=== PATIENT | male | born 1975 | race Caucasian/White ===

== ENCOUNTER 2018-06-30 12:30 | Emergency (ER) | payer SELFPAY ==
[2018-06-30 12:34] VITALS: BP 159/78; PULSE 127; RESP 16; TEMP 37.1; O2SAT 96
--- NOTE | 2018-06-30 12:44 | ED.GENADUL_ITS ---
Discharge Plan Disposition Patient Disposition: HOME Condition: Fair Discharge Details Chief Complaint: Laceration Clinical Impression: Finger laceration Primary Care Provider: NONE,NONE ED Provider: Birgit Alex Home Meds and New Rx's Prescriptions: No Action No Known Home Meds RF: 0 Discharge Instructions Instructions: Finger Laceration (ED) Additional Instructions: Keep wound clean, dry, covered. Keep current dressing on for the next 24 hours. After that time, you may cover with a Band-Aid. Please monitor for signs of infection including redness, warmth, drainage, increased pain, fever/ chills. If these arise please seek care urgently once again. Please return in 1 week for suture removal. He may wash and running water but do not soak or submerge this will increase her risk of infection. Tetanus Updated today. Discharge Data Discharge Date/Time-TO BE ENTERED AT DEPARTURE: 06/30/18 13:33 Medical Decision Making Patient presents today with chief complaint of laceration to fifth digit right hand. On exam, he is noted to have a curvilinear laceration is 8 mm in length. Wound is not actively bleeding. Flap is slightly displaced. No tenderness or bony involvement is noted. Sensation is intact this is range of motion Procedure note: Using standard sterile technique, a digital block was first performed 1% lidocaine plain. 5 cc was infiltrated. The sufficiently anesthetized the area. The wound was then copiously irrigated and explored to base in bloodless field. No foreign body or debris was noted. The wound was realigned and #4 simple interrupted sutures of 5-0 nylon was placed. Patient tolerated procedure well and a dry sterile bulky dressing was placed Patient tolerated proceudre well. Wound was dressed by nursing staff. ADvised that he keep currently dressing on for the next 24 hours. Discussed wound care in depth. Discussed signs and symptoms of infection and when to seek care urgently once again. Advised he return in one week for suture removal. All of his quesitons adn concerns were addressed, he is in agreement with this plan. HPI General Mode of arrival: ambulatory . Date/Time Provider Initiated Documentation: 06/30/18 12:42 . Limitations to Documentation: no limitations . Information obtained by: patient . HPI Narrative: Patient is a 42-year-old eqfyk-abvz-gchbicus male presenting today with chief complaint a laceration to the fifth digit of his right hand. He reports that prior to arrival he punched a piece of glass which subsequently broke slicing the middle interphalangeal joint on the dorsal aspect of hand. Denies any other sensation. Denies other injuries from the incident. Unknown tetanus status Related Data Home Medications Medication Instructions Recorded Confirmed Unknown [No Known Home Meds] 06/30/18 06/30/18 Allergies Allergy/AdvReac Type Severity Reaction Status Date / Time latex Allergy Mild Skin Rash Unverified 06/30/18 12:37 clindamycin AdvReac Intermediate vomiting Unverified 06/30/18 12:37 General Stated Complaint: Laceration RADHA: 3 Review of Systems Constitutional Denies chills and Denies fever(s) Musculoskeletal Reports as per HPI Integumentary/Breasts Reports as per HPI Neurologic Reports as per HPI FOR[facility]LY [facility] Social History Smoking/Tobacco Use Status: Current every day Exam Const General: cooperative, healthy appearing, comfortable, no acute distress, well developed and well groomed Nutritional Appearance: average body habitus and well nourished Orientation: alert and awake Resp Effort & Inspection: normal respiratory effort, able to speak in complete sentences and no respiratory distress Cardio Rate: regular rate Rhythm: regular rhythm Skin Trauma: laceration (patient has a curvilinear laceraton to the middle phalange of the 5th digit right hand. Acitvely bleeding slightly. Full ROM. Sensation intact. No ligamentous injury noted. ) Neuro General: alert and awake Cognition: normal cognition Speech: speech normal Gait: normal gait Sensory Exam: no sensory deficits noted Extrem General: abnormal to inspection (laceration as above, exam otherwise without acute abnoramlity) Psych Appearance: grossly normal and well kempt Mental Status: mental status grossly normal Speech and Movement: speech and movement normal Course Vital Signs Temperature 37.1 C 06/30/18 12:34 Pulse 127 H 06/30/18 12:34 Respiratory Rate 16 06/30/18 12:34 Blood Pressure 159/78 H 06/30/18 12:34 Pulse Oximetry 96 06/30/18 12:34 Temperature 37.1 C 06/30/18 12:34 Temperature Source Temporal Artery Scan 06/30/18 12:34 Pulse 127 H 06/30/18 12:34 Respiratory Rate 16 06/30/18 12:34 Respiratory Effort Non-Labored 06/30/18 12:36 Blood Pressure 159/78 H 06/30/18 12:34 Blood Pressure Position Sitting 06/30/18 12:34 Pulse Oximetry 96 06/30/18 12:34 Oxygen Delivery Method Room Air 06/30/18 12:34 Oxygen Flow Rate 0 06/30/18 12:34 Pain Level 0 06/30/18 12:34
== END 2018-06-30 13:33 | disposition home or self-care (01) ==
PROVIDERS: Emergency Provider Physician Assistant
DX: S61.216A Laceration without foreign body of right little finger without damage to nail, initial encounter (principal); W25.XXXA Contact with sharp glass, initial encounter
CPT/HCPCS: 12001; 90471

== ENCOUNTER 2020-05-09 00:45 | Outpatient (CLI) | payer MEDICAID, SELFPAY ==
--- NOTE | 2020-05-09 07:15 | DI.RAD_ITS ---
EXAM: XR CERVICAL SPINE COMP 4-5V CLINICAL HISTORY: Assess alignment, bones,RT HAND PARESTHESIA,RADICULOPATHY,M54.10,R20.2 TECHNIQUE: COMPARISON: No exams were available for comparison FINDINGS: Six views were obtained. There is mild cervical kyphosis. Prevertebral soft tissues appear intact. There are mild hypertrophic degenerative changes the facet joints and to a lesser degree the vertebr al endplates. There may be mild narrowing of the neural foramina at C4-5, C5-6, and C6-7 bilaterally . No other significant bony or soft tissue abnormality seen. IMPRESSION: Degenerative changes as described above, if there is clinical suspicion of neurologic impingement, ad ditional evaluation with cervical spine MRI may be considered.
--- NOTE | 2020-05-09 07:15 | DI.RAD_ITS ---
EXAM: XR LUMBAR SPINE COMPLETE CLINICAL HISTORY: Assess alignment, bones,DORSALGIA, M54,9,RADICULOPATHY,M54.10 TECHNIQUE: COMPARISON: No exams were available for comparison FINDINGS: Five views were obtained. There are bilateral total hip joint prostheses. There is mild wedging T11 through L1 vertebral bodies which appears old. This may be on a developmental basis or reflect old compression injuries. Mild prominence vertebral endplates mild facet arthropathy noted throughout th e lumbar region. No evidence of fracture. No spondylolysis or spondylolisthesis. IMPRESSION: No evidence of acute process.
== END 2020-05-09 01:05 ==
PROVIDERS: PCP Nurse Practitioner Adult Health; Visit Provider Nurse Practitioner Adult Health
DX: M54.10 Radiculopathy, site unspecified; M54.9 Dorsalgia, unspecified; Z96.641 Presence of right artificial hip joint; Z96.642 Presence of left artificial hip joint; M40.202 Unspecified kyphosis, cervical region; R20.2 Paresthesia of skin
CPT/HCPCS: 72050; 72110

== ENCOUNTER 2020-05-09 14:06 | Outpatient (CLI) | payer MEDICAID, SELFPAY ==
--- NOTE | 2020-05-09 14:00 | DI.RAD_ITS ---
EXAM: XR HIP LT COMPLETE AP PELVIS CLINICAL HISTORY: eval L hip and back pain, h/o SHAUNA TECHNIQUE: COMPARISON: CR RIGHT FEMUR from 10/23/2015 FINDINGS: Three views were obtained. There is a total hip joint replacement in position on the left.. Acetabu lar component remains well seated. There are cerclage wires in the proximal femoral shaft fixating a n apparently healed fracture. The femoral component of the prosthesis appears normally seated. On the right there is a total hip joint replacement in position. Plate and screw fixation of the pro ximal femur noted. There is moderate heterotopic bone formation in the soft tissues of both hip regions. IMPRESSION:
== END 2020-05-09 14:26 ==
PROVIDERS: PCP Nurse Practitioner Adult Health; Referring Provider Nurse Practitioner Adult Health; Visit Provider Student in an Organized Health Care Education/Training Program
DX: M25.552 Pain in left hip (principal); Z96.642 Presence of left artificial hip joint; Z96.641 Presence of right artificial hip joint
CPT/HCPCS: 73502

== ENCOUNTER 2020-05-16 02:23 | Outpatient (CLI) | payer MEDICAID, SELFPAY ==
[2020-05-16 10:23] LABS: ALT 16 U/L (16-63); AST 15 U/L (15-37); Albumin 3.8 g/dL (3.4-5.0); Alkaline Phosphatase 83 U/L (46-116); Anion Gap 9.1 mmol/L (3-11); BUN 18 mg/dL (7-18); Bilirubin, Total 0.4 mg/dL (0.2-1.0); CO2 25.9 mmol/L (21.0-32.0); CREATININE 0.66 mg/dL (0.70-1.30); Calculated LDL 76 mg/dL (<100); Chloride 105 mmol/L (98-107); Cholesterol 138 mg/dL (<200); Glucose 94 mg/dL (74-106); HDL Cholesterol 49 mg/dL (40-60); Potassium 5.1 mmol/L (3.5-5.1); Sodium 140 mmol/L (136-145); TSH (W/Ref FT4) 1.09 uIU/mL (0.36-3.74); Total Protein 6.8 g/dL (6.4-8.2); Triglyceride 67 mg/dL (<150)
== END 2020-05-16 02:43 ==
PROVIDERS: PCP Nurse Practitioner Adult Health; Visit Provider Nurse Practitioner Adult Health
DX: Z13.29 Encounter for screening for other suspected endocrine disorder (principal); Z13.1 Encounter for screening for diabetes mellitus; Z13.220 Encounter for screening for lipoid disorders
CPT/HCPCS: 36415; 80053; 80061; 84443

== ENCOUNTER 2020-05-18 01:41 | Outpatient (CLI) | payer MEDICAID, SELFPAY ==
--- NOTE | 2020-05-18 07:45 | DI.MRI_ITS ---
EXAM: MR LUMBAR SPINE WO CLINICAL HISTORY: ACUTE BACK PAIN WITH RADICULOPATHY,M54.10,M54.9,G89.29. TECHNIQUE: Multiplanar multisequence MRI of the Lumbar spine was performed. COMPARISON: CT RENAL COLIC WO CONTRAST from 07/17/2014 CR XR LUMBAR SPINE COMPLETE from 05/09/2020 FINDINGS: Bones: The last intervertebral disc space is designated the L5/S1 level for the numbering purpose of this examination. Old anterior wedging deformities of T11 through L1 are noted. There is normal ma rrow signal. No evidence of an acute fracture is identified. Alignment is satisfactory. The signal characteristics are unremarkable. Cord: The conus tip ends at the T12 level. It is of normal size and signal intensity. T12-L1: Mild diffuse disc bulge. Mild narrowing of the central spinal canal. No significant neural foraminal stenosis. L1-2: No disc herniations or bulges are present. No central spinal canal or neural foraminal stenosis . L2-3: Mild diffuse disc bulge. Mild degenerative changes of the facets. Mild central spinal canal n arrowing. No significant neural foraminal stenosis. L3-4: Mild diffuse disc bulge. Degenerative changes of the facets. Mild central spinal canal narrow ing.Mild left neural foraminal narrowing. No significant right neural foraminal narrowing. L4-5: Mild diffuse disc bulge. Degenerative changes of the facets. Mild narrowing of the central sp inal canal and neural foramen bilaterally. L5-S1: No disc herniations or bulges are present. No central spinal canal or neural foraminal stenosi s. Soft tissues: The visualized SI joints and sacrum are well maintained. The paraspinal soft tissues ar e unremarkable. IMPRESSION: Multilevel degenerative changes in the lumbar spine causing central spinal canal neural foraminal diego nosis as described above. DATA REPOSITORY:
== END 2020-05-18 02:01 ==
PROVIDERS: PCP Nurse Practitioner Adult Health; Visit Provider Student in an Organized Health Care Education/Training Program
DX: M47.26 Other spondylosis with radiculopathy, lumbar region (principal); M48.061 Spinal stenosis, lumbar region without neurogenic claudication; M54.9 Dorsalgia, unspecified; G89.29 Other chronic pain
CPT/HCPCS: 72148

== ENCOUNTER 2021-02-22 00:50 | Outpatient (CLI) | payer MEDICAID, SELFPAY ==
--- NOTE | 2021-02-22 07:45 | DI.MRI_ITS ---
Exam(s) MR CERVICAL SPINE WO EXAM: MR CERVICAL SPINE WO CLINICAL HISTORY: assess bones, alignment; suspect R side pathology,CHRONIC NECK PAIN,ABNL TECHNIQUE: Multiplanar multisequence MRI of the cervical spine was performed without intravenous con trast. COMPARISON: CR XR CERVICAL SPINE COMP 4-5V from 05/09/2020 FINDINGS: CERVICOMEDULLARY JUNCTION: Intact with no evidence of cerebellar tonsillar ectopia. No obvious abnor mality of the odontoid process. No evidence of Chiari 1 malformation. There is some reversal of the curvature of the cervical spinal canal which has its epicenter at C5-6 level. CERVICAL SPINAL CORD: There is no abnormal signal in the cervical spinal cord and no evidence of foca l cord atrophy nor focal cord swelling. OSSEOUS:There are no cervical fractures evident. No significant osseous lesions in the cervical vert ebrae. INDIVIDUAL LEVELS: C2-3: No disc herniation nor central canal stenosis. No foraminal stenosis. No facet arthropathy. C3-4: No disc herniation nor central canal stenosis.Mild left-sided facet arthropathy. Right facet j oints unremarkable. No foraminal stenosis. C4-5: No disc herniation nor central canal stenosis.No facet arthropathy. No foraminal stenosis C5-6: Mild disc space narrowing. Broad annular bulging which flattens the anterior thecal sac and co ntacts the cord. There is mild central spinal canal stenosis at this level. Very mild sys increased signal seen within the central cord at this level on sagittal T2 images but not substantiated on the axial images. There is mild bilateral foraminal stenosis at this level. No obvious facet arthropat hy. C6-7: Normal disc height. This level exhibits posterolateral left disc protrusion which extends post eriorly 2 millimeters and is approximately 9 cm wide and slightly indents the thecal sac and cord and is so seated with the small left-sided Luschka joint osteophyte at this level. There is mild forami nal stenosis. Mild central canal stenosis. No facet arthropathy. C7-T1: No disc herniation nor central canal stenosis. No facet arthropathy.No foraminal stenosis. IMPRESSION: 1. Main findings here are at C5-6 and C6-7 levels where there are disc findings as described above an d associated mild central spinal canal stenosis. On the sagittal T2 images there is subtle suggestio n of slightly increased signal within the cord at C5-6 level but this is not substantiated on the axi al images. There is no evidence of focal cord swelling nor focal cord atrophy and no evidence of syr inx. 2. No abnormal intraosseous findings. 3. DATA REPOSITORY:
== END 2021-02-22 01:10 ==
PROVIDERS: PCP Nurse Practitioner Adult Health; Visit Provider Nurse Practitioner Adult Health
DX: M54.2 Cervicalgia (principal); G89.29 Other chronic pain
CPT/HCPCS: 72141

== ENCOUNTER 2022-12-11 01:28 | Outpatient (CLI) | payer MEDICAID, SELFPAY ==
--- NOTE | 2022-12-11 07:15 | DI.MRI_ITS ---
Exam(s) MR CERVICAL SPINE WO EXAM: MR CERVICAL SPINE WO CLINICAL HISTORY: chronic neck pain, degenerative cervical disc,foraminal stenosis,m54.2, TECHNIQUE: Multiplanar multisequence MRI of the cervical spine was performed without intravenous con trast. COMPARISON: MR MR CERVICAL SPINE WO from 02/22/2021 FINDINGS: CERVICOMEDULLARY JUNCTION: Intact with no evidence of cerebellar tonsillar ectopia. No obvious abnor mality of the odontoid process. No evidence of Chiari 1 malformation. CERVICAL SPINAL CORD: There is no abnormal signal in the cervical spinal cord and no evidence of foca l cord atrophy nor focal cord swelling. OSSEOUS:There are no cervical fractures evident. No significant osseous lesions in the cervical vert ebrae. There is again noted reversal of the normal curvature which is unchanged from February 2021. INDIVIDUAL LEVELS: C2-3: No disc herniation nor central canal stenosis. No foraminal stenosis. No facet arthropathy. C3-4: Tiny focus of increased signal in the posterior annulus is unchanged and not associated with a disc herniation. No central spinal canal stenosis. No facet arthropathy evident.No significant fora pastor stenosis at this level. C4-5: Normal disc height and signal. No disc herniation. No central canal stenosis. No significant facet arthropathy. No significant foraminal stenosis. C5-6: Mild disc space narrowing again noted. Broad annular bulging again noted which flattens the an terior thecal sac and contacts the anterior aspect of the cervical cord. Mild central spinal canal s tenosis is unchanged. No significant facet arthropathy at this level. Mild bilateral foraminal steno sis C6-7: Preserved disc height. Broad annular bulging which flattens the anterior thecal sac resulting in mild central spinal canal stenosis. Bilateral Luschka joint osteophytes. On the left side there is osteophyte-disc complex again noted which results in some left-sided foraminal stenosis again sharon lar to previous. No prominent foraminal stenosis on the right side. C7-T1: Normal disc height. However, on the present study there is now a posterolateral left disc pro trusion at this level which extends posteriorly 2 millimeters and is approximately 9 millimeters wide .. This does not extend appreciably into the exiting left neural foramen. There does not appear to be significant foraminal stenosis on either side. No facet arthropathy. IMPRESSION: 1. Multilevel findings as described above. The previously described findings at C5-6 and C6-7 levels are unchanged from February 2021. 2. However, on today's study there is a new posterolateral left disc protrusion at C7-T1 level which indents the posterior left thecal sac, extending posteriorly 2 millimeters and approximately 9 millim eters wide. No significant foraminal stenosis. Mild central stenosis 3. Again noted is reversal of the normal curvature which was also evident on the prior MRI scan of 2020. DATA REPOSITORY:
--- NOTE | 2022-12-11 07:15 | DI.MRI_ITS ---
Exam(s) MR LUMBAR SPINE WO EXAM: MR LUMBAR SPINE WO CLINICAL HISTORY: chronic back pain,spinal stenosis,spondylosis,m54.40,m48.061,m47.816. TECHNIQUE: Multiplanar multisequence MRI of the Lumbar spine was performed. COMPARISON: MR MR LUMBAR SPINE WO from 05/18/2020 FINDINGS: Conus medullaris is at normal level. There is no evidence of conus mass nor subjacent clumping of in trathecal nerve roots to suggest arachnoiditis. The distal thecal sac appears unremarkable.There is no evidence of Tarlov intrasacral cysts nor other significant findings within the sacral canal Bones:There are no fractures nor ominous osseous lesions in the lumbar vertebral bodies and visualize d sacrum. There appear to be chronic sequelae probable Scheuermann's disease in the visualized lower thoracic spine, unchanged from the prior study. No evidence of bone edema to suggest recent fractur es. With respect to the individual levels... T11-T12: Annular bulging similar to previous T12-L1: Mild annular bulging similar to previous. No distinct disc herniation. No canal stenosis. No foraminal stenosis. Preserved disc height. L1-2: Normal disc height and signal. No disc herniation nor central canal stenosis.No foraminal steno sis L2-3: Normal disc height. No disc herniation. Mild central canal stenosis which is unchanged and rel ated to short AP dimensions of the pedicles. No foraminal stenosis. No significant facet arthropath y. L3-4: Normal disc height. No disc herniation. Mild central spinal canal stenosis due to short AP di mensions the pedicles. No foraminal stenosis.Mild facet joint degenerative changes. L4-5: Normal disc height and signal. Mild symmetrical annular bulging. Central canal dimensions are lower normal. No focal disc protrusion. No foraminal stenosis. Some facet arthropathy bilaterally . No listhesis. L5-S1: Normal disc height. No disc herniation. No canal stenosis. No foraminal stenosis. Mild fac et degenerative changes. Soft tissues: paraspinal soft tissues appear unremarkable. IMPRESSION: 1. Mild multilevel findings without significant change when compared to the prior MRI scan of May 2020. 2. There is mild multifocal central canal stenosis which is mostly due to developmental short AP dime nsions of the pedicles. This is most evident at L3-4 level and L4-5. There is no severe central spi nal canal stenosis. There is no from the efficacy foraminal stenosis. There are no focal disc herni ations. 3. The appearance of the visualized lower thoracic vertebral bodies is is unchanged from May 2020 and consistent with prior Scheuermann's disease. DATA REPOSITORY:
--- NOTE | 2022-12-11 07:15 | DI.MRI_ITS ---
Exam(s) MR THORACIC SPINE WO EXAM: MR THORACIC SPINE WO CLINICAL HISTORY: acute thoracic back pain,radicular pain,m54.6,m54.14 TECHNIQUE: Multiplanar multisequence MRI of the thoracic spine was performed without intravenous con trast. COMPARISON: MR MR CERVICAL SPINE WO from 12/11/2022 FINDINGS: OSSEOUS: There are no acute appearing thoracic vertebral fractures. Findings in mid lower thoracic ve rtebrae consistent with sequelae of chronic Scheuermann's disease. There are no ominous osseous lesi ons in the thoracic vertebrae. THORACIC SPINAL CORD: There is no abnormal signal in the cervical spinal cord and no evidence of foca l cord atrophy nor focal cord swelling. There is no evidence of syringomyelia nor significant spinal cord dysraphism. There is no evidence of mass at the conus medullaris. The position of the conus me dullaris is at normal level. SIGNIFICANT INDIVIDUAL LEVEL FINDINGS: There is a posterolateral disc herniation the C7-T1 level, as described on the cervical spine study. No other disc protrusions evident. This disc protrusion extends posteriorly millimeters and is appr oximately 1 cm wide. No other disc protrusions evident. Central canal dimensions within normal limits. No foraminal stenosis. PARASPINAL TISSUES: No significant masses nor fluid collections evident. IMPRESSION: 1. There is posterolateral left C7-T1 disc herniation. No other disc herniations in the thoracic spi nal column. 2. No acute fractures. Findings in the lower vertebral bodies of the thoracic spine are consistent w ith chronic sequelae of probable Scheuermann's disease. 3. No abnormal signal in the thoracic spinal cord. DATA REPOSITORY:
== END 2022-12-11 01:48 ==
PROVIDERS: PCP Nurse Practitioner Adult Health; Visit Provider Nurse Practitioner Adult Health
DX: M54.6 Pain in thoracic spine (principal); M54.14 Radiculopathy, thoracic region; M50.23 Other cervical disc displacement, cervicothoracic region; M48.061 Spinal stenosis, lumbar region without neurogenic claudication; M47.816 Spondylosis without myelopathy or radiculopathy, lumbar region; M54.12 Radiculopathy, cervical region; M50.322 Other cervical disc degeneration at C5-C6 level; M50.323 Other cervical disc degeneration at C6-C7 level; M48.02 Spinal stenosis, cervical region; M47.812 Spondylosis without myelopathy or radiculopathy, cervical region
CPT/HCPCS: 72141; 72146; 72148

== ENCOUNTER → 2023-12-18 00:31 | Outpatient (CLI) | payer MEDICAID, SELFPAY ==
--- NOTE | 2023-12-18 09:00 | DI.RAD_ITS ---
Exam(s) XR HIP PELVIS ADULT BL EXAM: XR HIP PELVIS ADULT BL CLINICAL HISTORY: Bilat hip pain, s/p SHAUNA bilaterally,worsening,m25.559. TECHNIQUE: 2D digital imaging was performed of the pelvis and bilateral hips. Four images were obta ined. AP pelvis and lateral views of both hips were obtained. COMPARISON: CR XR HIP LT COMPLETE AP PELVIS from 05/09/2020 FINDINGS: BONES: No acute fracture is present. No bony destructive lesion is seen. There are stable postsurgica l changes of bilateral total hip replacements. There is a sideplate and screws set seen in the right femur. JOINTS: No dislocation present. SOFT TISSUE: Normal. IMPRESSION: Stable appearance of the hips bilaterally. No acute abnormality. Unremarkable radiographs of the lvis DATA REPOSITORY: RADIATION DOSE DELIVERED:
== END ==
PROVIDERS: PCP Nurse Practitioner Adult Health; Visit Provider Preventive Medicine Occupational Medicine
DX: M25.551 Pain in right hip (principal); M25.552 Pain in left hip
CPT/HCPCS: 73521

== ENCOUNTER 2024-05-13 10:01 | Outpatient (CLI) | payer MEDICAID, SELFPAY ==
[2024-05-13 10:33] VITALS: BP 133/88; PULSE 65; RESP 20; TEMP 36.7; O2SAT 98
[2024-05-13 11:10] VITALS: PULSE 64; RESP 18; O2SAT 98
[2024-05-13 11:20] VITALS: PULSE 65; RESP 18; O2SAT 98
[2024-05-13 11:27] VITALS: BP 127/98; PULSE 62; PULSE 64; RESP 11; O2SAT 98
--- NOTE | 2024-05-13 11:27 | DI.RAD_ITS ---
Exam(s) XR PAIN CLINIC LUMBAR SP 2V EXAM: XR PAIN CLINIC LUMBAR SP 2V CLINICAL HISTORY: DX:Lumbar Spondylosis TECHNIQUE: 2D and realtime digital imaging was performed. Radiologist not present. CONTRAST MATERIAL: None. COMPARISON: No exams were available for comparison FINDINGS: Fluoroscopy was provided for pain management therapy. Please refer to procedure report or details. radiation Exposure Index: Ka,r=12.14 mGy IMPRESSION: As above. RADIATION DOSE DELIVERED:
[2024-05-13] MEDS: Bupivacaine 0.5% Pres-Free 10 ML VIAL IJ (11:34)
[2024-05-13] MEDS: Omnipaque 240 MG/ML 50 ML BTL IJ (11:34)
[2024-05-13] MEDS: Nerve Block Tray 1 EACH MC (11:35)
--- NOTE | 2024-05-18 08:31 | PDOC.PAIN_ITS ---
Date of service: 05/13/24 Time of Service: 11:11 Pain Managment Procedure Note Procedure Note Procedure Note: PROCEDURE NOTE Bilateral Lumbar Medial Branch Blocks Date of Service: May 13, 2024 Patient: Sebastián Teresa Provider: Raegan Samson DO, MPH Sebastián Duncan Teresa has been referred to the [facility] for lumbar medial branch blocks. Pre-operative diagnosis: Lumbar Spondylosis without Myelopathy Post-operative diagnosis: Same Pre-procedure pain: VAS= 10/10 COMMENTS: I previously evaluated her in the office. Dex was interviewed and the medical records were reviewed. There were no medical, pharmacologic, radiographic or other structural contraindications to attempting fluoroscopically guided local anesthetic lumbar medial branch blocks. Risks and potential side effects were discussed. I also discussed the potential benefit(s) of the procedure with Sebastián, and voiced concerns were addressed. After Sebastián was completely informed about the procedure, the printed consent form was signed. A standard time-out procedure was performed. Sebastián was placed in the prone position on the fluoroscopy table. Automated blood pressure cuff and pulse oximeter were applied. The skin entry points for approaching the anatomic target points of the segmental medial branches of bilateral L3,L4,L5 were identified with fluoroscopy and marked. The skin at the target site area was thoroughly prepared with Chlorhexadine. The skin was then draped. Next, a 25 gauge 3.5 spinal needle was placed under fluoroscopic guidance down on to the target point (the articular pillar) for each respective segmental medial branch. Position was confirmed in A/P and lateral views. Aspiration revealed no blood or clear fluid. Next, 0.25ml of omnipaque 240 was injected at each level. No contrast following a vascular or neural pattern was visualized under continuous fluoroscopy. Next, 0.25 ml of preservative-free 0.5% bupivicaine was injected at each level. There was no unusual discomfort expressed by Sebastián. The needles were withdrawn without difficulty. (49 mls of Omnipaque was wasted) Sebastián was observed and was without hemodynamic, neurologic, or allergic reactions.? Fluoroscopic images were digitally archived. Provacative testing using the Modified Rincon's facet loading test- Left side Right Side Directly before the block VAS (0-10) = 10/10 VAS (0-10) = 10/10 Five minutes after the block VAS (0-10) = 0/10 VAS (0-10) = 0/10 Percentage relief obtained with this diagnostic block 100% 100% Any improved physical functioning directly after the blocks? Able to move her back in all directions without pain Follow up plans and appointments were discussed with Sebastián. Sebastián was instructed to keep careful note of how the usual pain was modified by these injections. Specifically, to keep a pain diary for the next 4 hours using a numeric pain scale of 0-10 and report these results. Post procedure instruction was given as documented in the nursing documentation and having met discharge criteria, the patient was [facility]. Based on the medial branches blocked today, if they patient has adequate relief and we are able to proceed to radiofrequency ablation, the treatment should result in the denervation of the bilateral L4-L5 and L5-S1 facet joints. We would expect to denervate a total of 4 facets during the radiofrequency ablation. COMMENTS: No apparent complications. Post-procedure pain: VAS= 0/10 Sebastián will call back with 0-4 hour post-procedure pain scores. I personally performed the entire procedure. RAEGAN SAMSON DO, MPH ABPM&R-subspecialty board certification in Pain Medicine [facility]
== END 2024-05-13 10:02 | disposition home or self-care (01) ==
LOC: PC 10:01
PROVIDERS: PCP Nurse Practitioner Adult Health; Visit Provider Preventive Medicine Occupational Medicine
DX: M47.816 Spondylosis without myelopathy or radiculopathy, lumbar region (principal)
CPT/HCPCS: 64493; 64494; 72100; J0665; Q9967

== ENCOUNTER 2024-06-03 09:50 | Outpatient (CLI) | payer MEDICAID, SELFPAY ==
--- NOTE | 2024-06-03 06:00 | DI.RAD_ITS ---
Exam(s) XR PAIN CLINIC SACRIOILIAC 2V EXAM: XR PAIN CLINIC SACRIOILIAC 2V CLINICAL HISTORY: DX: Sacroiliac Joint Dysfunction TECHNIQUE: 2D and realtime digital imaging was performed. Radiologist not present. CONTRAST MATERIAL: None. COMPARISON: No exams were available for comparison FINDINGS: Fluoroscopy was provided for pain management therapy. Please refer to procedure report or details. Radiation Exposure Index: Ka,r=4.88 mGy IMPRESSION: As above. RADIATION DOSE DELIVERED:
[2024-06-03 10:11] VITALS: BP 117/77; PULSE 70; RESP 20; TEMP 36.8; O2SAT 99
[2024-06-03 10:32] VITALS: PULSE 67; RESP 11; O2SAT 99
[2024-06-03] MEDS: Nerve Block Tray 1 EACH MC (10:39)
[2024-06-03 10:40] VITALS: PULSE 66; RESP 16; O2SAT 96
[2024-06-03 10:41] VITALS: BP 121/93; PULSE 66
[2024-06-03] MEDS: Omnipaque 240 MG/ML 50 ML BTL IJ (10:42)
[2024-06-03] MEDS: methylPREDNISolone ACETATE 80 MG/ML VIAL IJ (10:42)
--- NOTE | 2024-06-03 10:55 | PDOC.PAIN_ITS ---
Date of service: 06/03/24 Time of Service: 10:56 Pain Managment Procedure Note Procedure Note Procedure Note: PROCEDURE NOTE LEFT INTRA-ARTICULAR SACROILIAC JOINT INJECTION Date of Service: June 03, 2024 Patient: Sebastián Teresa Provider: Joni Samson DO, MPH COMMENTS: I previously evaluated the patient in the office and their symptoms in relation to the sacroiliac joint pain have remained the same. Pre-operative diagnosis: Sacroiliac joint dysfunction Post-operative diagnosis: Same Pre-procedure pain: VAS= 7/10 Sebastián Teresa has been referred to [facility] for a Left intra-articular Sacroiliac joint injection. Sebastián was interviewed and the medical record reviewed. There were no medical, pharmacologic, radiographic or other structural contraindications to attempting a fluoroscopically-guided, contrast-enhanced, intra-articular Sacroiliac joint injection. The risks, benefits, and potential side effects of this procedure were reviewed with the patient. Questions and concerns were addressed. After it was clear that Sebatsián was fully informed about the procedure, the printed consent form was signed by the patient and myself. Sebastián was placed in the prone position on the fluoroscopy table and an automated blood pressure cuff, 3 lead EKG, and pulse oximeter were applied. The skin entry point for approaching the Left sacroiliac joint was identified under the most advantageous fluoroscopic view and marked. Following thorough Chlorhexadine preparation of the skin and draping with sterile surgical drapes, 2 mls of 1% lidocaine was infiltrated into the skin at the entry point and the surrounding subcutaneous tissues. Next, a 3.5 22G spinal needle was placed under fluoroscopic guidance into the Left sacroiliac joint. Intra-articular placement was confirmed by a clear arthrogram resulting from the injection of 0.25ml of Omnipaque-240. Next, 1 ml of Depo- Medrol 80 mg/ml was injected intra- articularly with an initial reproduction of a significant component of the usual pain. This was followed with 1 ml of 1% Lidocaine. The needle was then removed without difficulty. (49 ml of Omnipaque-240 was wasted). Sebastián's vital signs were stable throughout the procedure and were as recorded in nursing records. Follow up plans and appointments were discussed with Sebastián. Post procedure instructions were given as documented in nursing records. Having met discharge criteria, Sebastián was [facility] from the [facility]. COMMENTS: Post-procedure pain: VAS= 2/10. If the patient receives at least 50% improvement in pain and/or function for at least 3 months, this procedure can be repeated if needed. I personally performed this entire procedure. JONI SAMSON DO, MPH ABPMR-subspecialty board certification in Pain Medicine [facility]
== END 2024-06-03 09:51 | disposition home or self-care (01) ==
LOC: PC 09:50
PROVIDERS: PCP Nurse Practitioner Adult Health; Visit Provider Preventive Medicine Occupational Medicine
DX: M46.1 Sacroiliitis, not elsewhere classified (principal)
CPT/HCPCS: 27096; 72200; J1010; Q9967

== ENCOUNTER 2024-07-01 16:29 | Emergency (ER) | payer MEDICAID, SELFPAY ==
[2024-07-01] VITALS (13 sets, daily range): BP systolic 146; BP diastolic 86; PULSE 65–77; RESP 13–20; TEMP 36.5; O2SAT 96–99
--- NOTE | 2024-07-01 16:45 | DI.CT_ITS ---
Exam(s) CT HEAD CERVICAL SPINE WO EXAM: CT HEAD CERVICAL SPINE WO CLINICAL HISTORY: cervical pain post fall 8 ft, no neuro def. TECHNIQUE: Imaging Protocol: Axial computed tomography images with coronal and sagittal reformatted images were created and reviewed COMPARISON: No exams were available for comparison FINDINGS: BRAIN: There are no skull fractures nor fluid in the visualized paranasal sinuses. There is no evidence of intracranial hemorrhage, mass effect, or shift of midline structures. There are no extra-axial fluid collections. The ventricles are not enlarged or shifted and there is no blo od within the ventricular system nor within the basal cisterns. CERVICAL SPINE: There is no evidence of fracture nor listhesis. No significant prevertebral soft tissue swelling. C1 arch and odontoid process appear unremarkable. Mild evidence of degenerative disc disease at C5-6 and C6-7 levels. Minimal disc space narrowing and small bilateral Luschka joint osteophytes at both these levels. There are no significant facet join t degenerative changes. There is no significant facet joint malalignment. No significant osseous lesions evident. IMPRESSION: No acute intracranial findings on this noninfused CT scan of the brain. No evidence of cervical spine fracture, malalignment, nor acute compromise of the cervical spinal can al. Called by myself to ER 07/01/2024 at 5:37 p.m. RADIATION DOSE DELIVERED: 1,268.1mGy.cm Total DLP DATA REPOSITORY: All CT scans at this facility are submitted to the National Radiology Data Registry (NRDR) Dose Index Registry (DIR) with the [employer] (ACR). RADIATION OPTIMIZATION: All CT scans at this facility use at least one of these dose optimization te chniques: automated exposure control; mA and/or kV adjustment per patient size (includes targeted exa ms where dose is matched to clinical indication); or iterative reconstruction.
--- NOTE | 2024-07-01 16:45 | DI.CT_ITS ---
Exam(s) CT CHEST/ABD/PEL W EXAM: CT CHEST/ABD/PEL W CLINICAL HISTORY: fall 8 feet, landed on chest, left sided pain. TECHNIQUE: Imaging Protocol: Axial computed tomography images with coronal and sagittal reformatted images were created and reviewed CONTRAST MATERIAL: Intravenous: Omnipaque 350 Contrast volume:100 ml Oral: None COMPARISON: CT RENAL COLIC WO CONTRAST from 07/17/2014 FINDINGS: CHEST: LUNGS: No evidence of lung contusion, infiltrates, pleural effusions, nor pneumothorax.. MEDIASTINUM: No evidence of sternal fracture nor mediastinal hematoma. CARDIAC: Heart size is normal. There is no pericardial effusion.Diameter of the ascending thoracic a gabi is upper normal. No evidence of aortic dissection. OSSEOUS: No acute compression fractures of the thoracic vertebral bodies. Developmental anomalies of lower thoracic vertebrae noted. There are multiple bilateral rib deformities but no obvious acute r ib fractures.. ABDOMEN: There is no ascites. No evidence of mesenteric nor bowel wall hematoma. No prominent subcutaneous b ruising nor subcutaneous fluid collections. No radiopaque foreign bodies. LIVER: Intact. No lacerations. No lesions. No dilated intrahepatic ducts. GALLBLADDER/BILIARY: There is a 1 point 5 x 1.3 cm gallstone is in the mid gallbladder lumen. No gal lbladder wall edema nor pericholecystic fluid. CBD is not dilated. PANCREAS: No evidence of pancreatic mass, pancreatic calcifications, nor peripancreatic fluid collect ion. The pancreatic duct, however, is slightly prominent at the level the pancreatic head-neck measu ring 4 mm. There is no discernible mass. No peripancreatic fluid collections. SPLEEN: Intact. No lacerations. Normal size. No lesions. Splenic and portal veins are patent. ADRENALS: There are no significant adrenal masses. KIDNEYS: Intact. No lacerations norxz subcapsular hematomas. No renal calculi nor hydronephrosis. Benign cyst in the posterior cortex of the left kidney superior pole noted which measures 1 cm. Does not require further investigation.. No solid renal masses seen. No calculi. No hydronephrosis nor hydroureter. Urinary bladder is upper normal size. Difficult to assess because of beam hardening a rtifact from bilateral hip prostheses. ABDOMINAL AORTA: Abdominal aorta is not enlarged. LYMPH NODES: There is no retroperitoneal nor paraaortic adenopathy. ABDOMINAL WALL: No evidence of significant anterior abdominal wall nor inguinal hernia. GI: There is no evidence of bowel obstruction.No free air. No abscess. PELVIS: LYMPH NODES: There is no intrapelvic nor inguinal adenopathy. GI: No evidence of appendicitis.No evidence of sigmoid diverticulitis. URINARY BLADDER: Difficult to assess because of beam hardening artifact bilateral hip prostheses. No t distended. REPRODUCTIVE: Prostate difficult to assess because of beam hardening artifact from hip prostheses. H owever, no gross dilatation of the prostate evident. OSSEOUS: Chronic hip deformities in bilateral hip prostheses. No acute fractures evident in the pelv is and vertebral bodies. No listhesis. IMPRESSION: 1. No significant acute trauma sequelae in the chest, abdomen, and pelvis. 2. Bilateral hip prostheses. Chronic hip deformities. Vertebral body and chest wall deformities on developmental basis. Called by myself to ER provider 07/01/2024 6:10 p.m. RADIATION DOSE DELIVERED: 279.83mGy.cm Total DLP DATA REPOSITORY: All CT scans at this facility are submitted to the National Radiology Data Registry (NRDR) Dose Index Registry (DIR) with the [employer] (ACR). RADIATION OPTIMIZATION: All CT scans at this facility use at least one of these dose optimization te chniques: automated exposure control; mA and/or kV adjustment per patient size (includes targeted exa ms where dose is matched to clinical indication); or iterative reconstruction.
--- NOTE | 2024-07-01 17:00 | DI.RAD_ITS ---
Exam(s) XR SHOULDER LT COMPLETE 2+V EXAM: XR SHOULDER LT COMPLETE 2+V CLINICAL HISTORY: pain post fall. TECHNIQUE: 2D digital imaging was performed. COMPARISON: CR XR CERVICAL SPINE COMP 4-5V from 05/09/2020 FINDINGS: 3 views Deformity of the humeral head and osseous glenoid noted as well as the visualized proximal humeral di aphysis. Either developmental or related to prior fractures. Also deformity of the medial ipsilater al clavicle noted. There are no obvious acute fracture lines. No soft tissue calcifications. IMPRESSION: Post trauma deformities. No obvious acute fractures evident. DATA REPOSITORY: RADIATION DOSE DELIVERED:
--- NOTE | 2024-07-01 17:00 | DI.RAD_ITS ---
Exam(s) XR ELBOW LT LIMITED EXAM: XR ELBOW LT LIMITED CLINICAL HISTORY: left elbow pain. TECHNIQUE: 2D digital imaging was performed. COMPARISON: No exams were available for comparison FINDINGS: Two views-AP and lateral There are deformities in the elbow joint which are either developmental, posttraumatic, or combinatio n there of. No obvious acute fractures evident. The significant foreshortening of the forearm bones noted IMPRESSION: Developmental and post trauma of degenerative changes. No obvious acute fractures. DATA REPOSITORY: RADIATION DOSE DELIVERED:
[2024-07-01 17:05] LABS: Abs Immature Grans 0.05 10^3/uL (0.0-0.06); Absolute Basophil Count 0.09 10^3/uL (0.0-0.2); Absolute Eosinophil Count 0.12 10^3/uL (0.0-0.7); Absolute Lymphocyte Count 3.03 10^3/uL (1.2-3.4); Absolute Monocyte Count 0.65 10^3/uL (0.1-0.8); Absolute Neutrophil Count 6.67 10^3/uL (1.2-6.7); Basophils % 0.8 %; Eosinophils % 1.1 %; HCT 45.9 % (40.0-50.0); HGB 15.6 g/dL (13.5-17.5); Immature Grans % 0.5 %; Lymphocytes % 28.6 %; MCH 31.4 pg (27.0-33.0); MCV 92 fL (80-95); MPV 8.3 fL (8.0-11.0); Monocytes % 6.1 %; Neutrophils % 62.9 %; Platelet Count 383 10^3/uL (130-400); RBC 4.97 10^6/uL (4.36-5.78); RDW 12.6 % (11.8-14.1); RDW-SD 42.8 fL; WBC 10.61 10^3/uL (4.4-10.8)
[2024-07-01] MEDS: Normal Saline 500 ML IV (17:07)
[2024-07-01] MEDS: MORPHine 4 MG/ML SYR IVP (17:07)
[2024-07-01 17:21] LABS: ALT 15 U/L (16-63); AST 20 U/L (15-37); Albumin 3.9 g/dL (3.4-5.0); Alkaline Phosphatase 91 U/L (46-116); Anion Gap 9.2 mmol/L (3-11); BUN 9 mg/dL (7-18); Bilirubin, Total 0.55 mg/dL (0.2-1.0); CO2 24.8 mmol/L (21.0-32.0); CREATININE 0.7 mg/dL (0.70-1.30); Calcium 8.9 mg/dL (8.5-10.1); Chloride 99 mmol/L (98-107); Estimated GFR 115.08 (mL/min/1.73m2); Glucose 84 mg/dL (74-106); Potassium 4.1 mmol/L (3.5-5.1); Sodium 133 mmol/L (136-145); Total Protein 7.5 g/dL (6.4-8.2)
[2024-07-01] MEDS: Normal Saline - Diluent 50 ML VIAL IJ (17:27)
[2024-07-01] MEDS: Omnipaque 350 MG/ML 100 ML BTL IJ (17:52)
[2024-07-01] MEDS: oxyCODONE 5 mg/Acetaminophen 325 mg TAB 1 TAB PO (19:06)
[2024-07-01] MEDS: Ketorolac 15 MG/ML VIAL 7.5 MG IVP (19:06)
--- NOTE | 2024-07-03 08:10 | ED.GENADUL_ITS ---
Discharge Plan Disposition Patient Disposition: Home Discharge Details Clinical Impression: Injury of shoulder, Cervical strain, Chest wall contusion Primary Care Provider: Anayeli Gray ED Provider: Martha Moore Home Meds and New Rx's Prescriptions: New cyclobenzaprine 10 mg tablet 10 mg PO TID PRNQty: 10 0RF Continued acetaminophen 500 mg capsule 1,000 mg PO TID PRN (Reason: fever) Qty: 60 2RF Rx Instructions: For neck & hip pain (arthritis); ok to take with Celebrex. ibuprofen 200 mg tablet 200 mg PO Q6H PRN gabapentin 600 mg tablet 600 mg PO QHS Qty: 90 3RF triamcinolone acetonide 0.1 % ointment 1 applic topical DAILY Qty: 15 0RF Rx Instructions: use daily for 2 weeks to both elbows omeprazole 20 mg capsule,delayed release(DR/EC) 20 mg PO DAILY PRN (Reason: heartburn) Qty: 90 3RF Rx Instructions: heartburn Discharge Instructions Instructions: Muscle Strain ED, Cervical Sprain ED Additional Instructions: Keep wounds clean and dry Ibuprofen and Tylenol as needed for pain take oxycodone sparingly, this medication is addictive flexeril should not be taken within 8 hours of oxycodone continue to range shoulder so it does not become stiff take at least 12 complete inhalations and exhalations so you don't develop penumonia for chest wall injury recheck in one week with persistent pain Referrals: Anayeli Gray, PUBLISHER ASSISTANT [Primary Care Provider] - 3 days Discharge Data Discharge Date/Time-TO BE ENTERED AT DEPARTURE: 07/01/24 19:13 HPI General Date/Time Provider Initiated Documentation: 07/01/24 16:41 . HPI Narrative: 48-year-old male presents after fall approximately 8 feet from a porch. Patient reports landing on his left chest and shoulder. Denies loss of consciousness. Unsure as to whether or not he hit his head. Denies any abdominal pain nausea vomiting. Event occurred just prior to arrival. He was unable to lift himself, girlfriend came home and helped him up. Denies history of coagulopathy. Denies strength or sensation change. Denies any confusion. Related Data Home Medications ?Medication ?Instructions ?Recorded ?Confirmed acetaminophen 500 mg capsule 1,000 mg (2 x 500 mg) PO TID PRN 05/20/20 07/01/24 fever #60 caps omeprazole 20 mg capsule,delayed 20 mg PO DAILY PRN heartburn #90 09/04/23 07/01/24 release caps ibuprofen 200 mg tablet 200 mg PO Q6H PRN 09/05/23 07/01/24 gabapentin 600 mg tablet 600 mg PO QHS #90 tabs 05/27/24 07/01/24 triamcinolone acetonide 0.1 % 1 applic topical DAILY #15 grams 05/27/24 07/01/24 topical ointment cyclobenzaprine 10 mg tablet 10 mg PO TID PRN #10 tabs 07/01/24 Previous Rx's ?Medication ?Instructions ?Recorded acetaminophen 500 mg capsule 1,000 mg (2 x 500 mg) PO TID PRN 05/20/20 fever #60 caps omeprazole 20 mg capsule,delayed 20 mg PO DAILY PRN heartburn #90 09/04/23 release caps gabapentin 600 mg tablet 600 mg PO QHS #90 tabs 05/27/24 triamcinolone acetonide 0.1 % 1 applic topical DAILY #15 grams 05/27/24 topical ointment cyclobenzaprine 10 mg tablet 10 mg PO TID PRN #10 tabs 07/01/24 Allergies Allergy/AdvReac Type Severity Reaction Status Date / Time latex Allergy Mild Skin Rash Verified 07/01/24 16:39 clindamycin AdvReac Intermediate vomiting Verified 07/01/24 16:39 amitriptyline AdvReac Mild irritabilit Verified 07/01/24 16:39 y cyclobenzaprine AdvReac Mild Irritabilit Verified 07/01/24 16:39 y duloxetine AdvReac Agitation Verified 07/01/24 16:39 General Stated Complaint: Trauma RADHA: 2 Exam Narrative Exam Narrative: Alert and oriented 48-year-old male in acute distress from pain. No visible sign of head trauma, cervical spine tenderness around the fifth and 6 cervical spine predominantly paraspinal, neurovascularly intact all 4 extremities, pupils equal round reactive to light accommodation, palpable chest wall tenderness along the entire left anterior and posterior chest wall, no CVA tenderness, lungs clear to auscultation, no respiratory distress, cardiac rate rhythm regular, distal pulses intact, no palpable abdominal tenderness although when I press on the left upper quadrant the left chest pain is exacerbated and no visible sign of abdominal wall trauma, laceration superficial to left mid axillary region on chest wall, alert and oriented x 4, GCS 15, no sign of trauma to bilateral lower extremities, tenderness to left shoulder, limited range of motion, tenderness left elbow, limited range of motion, no obvious deformity Course Vital Signs Vital signs: Vital Signs Temperature 36.5 C 07/01/24 16:31 Pulse 77 07/01/24 16:31 Respiratory Rate 20 07/01/24 16:31 Blood Pressure 146/86 H 07/01/24 16:31 Pulse Oximetry 98 07/01/24 16:31 Temperature 36.5 C 07/01/24 19:13 Temperature Source Oral 07/01/24 16:31 Pulse 77 07/01/24 19:13 Pulse 65 07/01/24 18:00 Respiratory Rate 13 07/01/24 19:13 Respiratory Effort Normal, Non-Labored 07/01/24 17:01 Respiratory Depth Normal 07/01/24 17:01 Respiratory Pattern Normal 07/01/24 17:01 Blood Pressure 146/86 H 07/01/24 19:13 Pulse Oximetry 96 07/01/24 19:13 Pain Level 10 07/01/24 17:07 Lab/Test Results Lab/Test Results: Laboratory Tests Range/Units 07/01/24 16:57 WBC (4.4-10.8) 10^3/uL 10.61 RBC (4.36-5.78) 10^6/uL 4.97 Hgb (13.5-17.5) g/dL 15.6 Hct (40.0-50.0) % 45.9 MCV (80-95) fL 92 MCH (27.0-33.0) pg 31.4 MCHC (32.0-36.0) % 34.0 RDW (11.8-14.1) % 12.6 Plt Count (130-400) 10^3/uL 383 MPV (8.0-11.0) fL 8.3 Immature Gran % % 0.5 Neutrophils % % 62.9 Lymphocytes % % 28.6 Monocytes % % 6.1 Eosinophils % % 1.1 Basophils % % 0.8 Nucleated RBC % (0.0-0.3) % 0.0 Absolute Neutrophils (1.2-6.7) 10^3/uL 6.67 Absolute Lymphocytes (1.2-3.4) 10^3/uL 3.03 Absolute Monocytes (0.1-0.8) 10^3/uL 0.65 Absolute Eosinophils (0.0-0.7) 10^3/uL 0.12 Absolute Basophils (0.0-0.2) 10^3/uL 0.09 Sodium (136-145) mmol/L 133 L Potassium (3.5-5.1) mmol/L 4.1 Chloride (98-107) mmol/L 99 Carbon Dioxide (21.0-32.0) mmol/L 24.8 Anion Gap (3-11) mmol/L 9.2 BUN (7-18) mg/dL 9 Creatinine (0.70-1.30) mg/dL 0.7 Est GFR (CKD-EPI 2020) (mL/min/1.73m2) 115.08 Glucose (74-106) mg/dL 84 Calcium (8.5-10.1) mg/dL 8.9 Total Bilirubin (0.2-1.0) mg/dL 0.55 AST (15-37) U/L 20 ALT (16-63) U/L 15 L Alkaline Phosphatase (46-116) U/L 91 Total Protein (6.4-8.2) g/dL 7.5 Albumin (3.4-5.0) g/dL 3.9 Medical Decision Making 48-year-old male in no acute distress alert and oriented x 4 presenting after a fall approximately 8 feet from a porch. Given medical history of pseudo chondral plasia and widespread pain, I did order CTA head, cervical spine chest abdomen and pelvis. Patient does not have any obvious evidence of acute trauma per radiology interpretation my review, left shoulder and elbow also did not display acute fracture. Patient is feeling improvement after morphine, fluids and Toradol, he is requesting discharge home at this time. He will be given a sling with frozen shoulder return precautions. He has been fully alert and oriented. He will practice supportive pulmonary care to treat his chest wall tenderness to be sure he does not develop pneumonia, there is no obvious rib fracture. He is encouraged to return should he have new or worsening complaints and discharged home in stable condition with stable vitals. 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) Foraminal stenosis of cervical region (Acute) Kyphosis of cervical region (Acute) Degenerative cervical disc (Acute) Cervical radiculopathy (Acute) Chronic neck pain (Acute) Heartburn (Chronic) Omeprazole helps Lumbar disc herniation with radiculopathy (Acute) Chronic radicular lumbar pain (Chronic) [facility] 02/09/2021-->lumbosacral spondylosis without myelopathy Left hip pain (Acute) Right hand paresthesia (Acute) Chronic back pain (Acute) Nicotine use disorder (Acute) Pseudoachondroplasia (Chronic) Medical History History of spinal fracture History of femur fracture R; nicole in place Headache Surgical History History of bilateral hip replacements Family History Maternal Grandfather Diabetes Hypertension Maternal Grandmother Heart disease CHF Hypertension Mother Hypertension Maternal Grandfather Alcohol abuse Other Arthritis Social History Smoking/Tobacco Use Status: Current every day Tobacco Type: cigarettes Smoking risk assessment performed?: Yes Alcohol Intake: current Alcohol Intake frequency: holidays/special occasions only Drug use: Daily Substance use type: marijuana Household members: family Housing: house Do you need help understanding health information?: Rarely current occupation: Unemployed Do you think of yourself as: straight/heterosexual Current gender identity: male Do you feel safe at home: Yes Do you feel safe in your relationship?: Yes
== END 2024-07-01 19:13 | disposition home or self-care (01) ==
PROVIDERS: Emergency Provider Physician Assistant; PCP Nurse Practitioner Adult Health
DX: S20.212A Contusion of left front wall of thorax, initial encounter (principal); S16.1XXA Strain of muscle, fascia and tendon at neck level, initial encounter; M25.512 Pain in left shoulder; M25.522 Pain in left elbow; W10.8XXA Fall (on) (from) other stairs and steps, initial encounter
CPT/HCPCS: 36415; 74177; 80053; 96361; 96374; 96375; 99285; 70450; 71260; 72125; 73030; 73070; 85025; 99283; J1885; J2270; J3490

== ENCOUNTER 2024-07-16 12:12 | Outpatient (CLI) | payer MEDICAID, SELFPAY ==
--- NOTE | 2024-07-16 11:00 | DI.RAD_ITS ---
Exam(s) XR SHOULDER LT COMPLETE 2+V XR CLAVICLE LT EXAM: XR SHOULDER LT COMPLETE 2+V CLINICAL HISTORY: Second fall--r/o bony abnorm; compare to prior x-r M75.102 R29.6 M25.512. TECHNIQUE: 2D digital imaging was performed. Five views of the shoulder. Two views of the clavicle COMPARISON: CR XR CERVICAL SPINE COMP 4-5V from 05/09/2020 CR XR SHOULDER LT COMPLETE 2+V from 07/01/2024 CR XR CLAVICLE LT from 07/16/2024 FINDINGS: BONES: No acute fracture is present. No bony destructive lesion is seen. Chronic deformities of the humeral head and proximal humeral shaft as well as glenoid. Chronic appearing deformities of both pr oximal ends of the clavicles. Os acromiale. Mild thoracic scoliosis. JOINTS: No dislocation present. Chronic deformity at the glenohumeral joint. AC joint not widened. SOFT TISSUE: Normal. IMPRESSION: Chronic bony deformities. No acute abnormality. DATA REPOSITORY: RADIATION DOSE DELIVERED:
== END 2024-07-16 12:32 ==
LOC: DI 12:13
PROVIDERS: PCP Nurse Practitioner Adult Health; Visit Provider Nurse Practitioner Adult Health
DX: M21.212 Flexion deformity, left shoulder (principal)
CPT/HCPCS: 73000; 73030

== ENCOUNTER 2024-09-09 12:08 | Outpatient (CLI) | payer MEDICAID, SELFPAY ==
--- NOTE | 2024-09-09 06:00 | DI.RAD_ITS ---
Exam(s) XR PAIN CLINIC CERVICAL SP 2V EXAM: XR PAIN CLINIC CERVICAL SP 2V CLINICAL HISTORY: Dx: Cervical Radiculopathy. TECHNIQUE: Fluoroscopy was provided for the referring physician for guidance with performing pain cl inic injection procedure. COMPARISON: No exams were available for comparison FINDINGS: Please see procedure note for details. Fluoro time: 21.5 seconds RADIATION DOSE DELIVERED: Ka,r=2.2 mGy
[2024-09-09 12:12] VITALS: BP 114/85; PULSE 56; RESP 20; TEMP 36.7; O2SAT 98
[2024-09-09 12:26] VITALS: O2SAT 97
[2024-09-09 12:30] VITALS: BP 114/88; PULSE 69; PULSE 72; RESP 17; O2SAT 97
[2024-09-09 12:31] VITALS: BP 138/86; PULSE 68; PULSE 70; RESP 16; O2SAT 96
[2024-09-09 12:32] VITALS: PULSE 66; RESP 15; O2SAT 96
[2024-09-09 12:40] VITALS: PULSE 72; RESP 9; O2SAT 94
--- NOTE | 2024-09-09 12:42 | PDOC.PAIN_ITS ---
Date of service: 09/09/24 Time of Service: 12:42 Pain Managment Procedure Note Procedure Note Procedure Note: Procedure Note Cervical Interlaminar Epidural Steroid Injection Date of Service: September 09, 2024 Patient:Sebastián Bansal? Provider:? Raegan Mcdaniels DO, MPH Sebastián has been referred to the [facility] for cervical epidural steroid injection.? Pre-operative diagnosis: Cervical Radiculopathy ICD-10 M54.12 Post-operative diagnosis: Same Pre-procedure pain: VAS= 7/10 Comments: I previously evaluated him in the clinic. His symptoms are the same. Sebastián was interviewed and the medical record was reviewed.? There were no medical, pharmacologic, radiographic or other structural contraindications to attempting fluoroscopically guided cervical interlaminar epidural steroid injection.? Risks, potential side effects, indications, and potential benefits of the procedure were reviewed with Sebastián.? Questions and concerns were addressed.? After it was clear that the patient was fully informed about the procedure, the printed consent form was signed by the patient and myself.? Sebastián was placed in the prone position on the fluoroscopy table and automated blood pressure cuff as well as pulse oximeter was applied. A standard time-out procedure was performed. The skin entry point for entering the epidural space by a midline C7-T1 interlaminar approach was identified under fluoroscopy and marked.? The skin entry point was thoroughly cleaned with Chlorhexadine preparation and the skin was draped.? Next a mixture of 2 mls of 1% lidocaine was infiltrated into the area of the planned skin entry point and underlying subcutaneous tissues.? Next an 18 gauge Tuohy needle was placed under fluoroscopic guidance and with loss of resistance technique into the epidural space utilizing multiple AP and 55 degree contralateral fluoroscopic views.? Upon correct needle placement and loss of resistance, there were no paresthesia or return of blood or CSF through the needle. Next 1 mls of preservative-free Omnipaque 240 was injected with clear epidural spread in the A/P and oblique views. Next, a solution of 15 mg of preservative-free Dexamethasone was injected. This was followed with 1ml of preservative-free normal saline. No unusual discomfort was expressed by Sebastián. The needle was withdrawn without difficulty. (49 mls of Omnipaque and 5 mg of Dexamethasone was wasted) Sebastián was observed and was without hemodynamic, neurologic, or allergic reactions.? Fluoroscopic images were digitally archived. Sebastián's vital signs were stable throughout the procedure and were as recorded in the doc flowsheet by the nursing staff.? If given, dosages of intravenous drugs for anxiolysis and analgesia were documented in MAR. Follow up plans and appointments were discussed with Sebastián.? Post procedure instruction was given as documented in nursing documentation and having met mariia hollingsworth criteria, Sebastián was [facility] from the [facility]. A retrospective review of interlaminar cervical ESIs found that approximately two-thirds of patients with symptomatic cervical radiculopathy from disc herniation were able to avoid surgery for up to 1 year with treatment. Success rate was improved with earlier injection (< 100 days from diagnosis). Senait EL, Lidya V, Newton L, Adithya AN, Junior LATHAM. Cervical epidural steroid injections for symptomatic disc herniations. J Spinal Disord Tech. 2006 February;19(3):183-6. ? COMMENTS: No apparent complications. Post-procedure pain: VAS= 7/10. Sebastián to contact [facility] as needed. If at least 50% improvement in pain and/or function for at least 3 months is achieved, this procedure can be repeated. I personally completed the entire procedure. RAEGAN MCDANIELS DO, MPH ABPMR-subspecialty board certification in Pain Medicine [facility] [facility]
[2024-09-09] MEDS: Omnipaque 240 MG/ML 50 ML BTL IJ (12:45)
[2024-09-09] MEDS: Epidural Tray 1 EACH MC (12:45)
[2024-09-09] MEDS: Dexamethasone Sod. Phos./Pres-Free 10 MG/ML VIAL IJ (12:46)
== END 2024-09-09 12:09 | disposition home or self-care (01) ==
LOC: PC 12:08
PROVIDERS: PCP Nurse Practitioner Adult Health; Visit Provider Preventive Medicine Occupational Medicine
DX: M54.12 Radiculopathy, cervical region (principal)
CPT/HCPCS: 62321; 72040; J1100; Q9967

== ENCOUNTER 2024-10-13 01:02 | Outpatient (CLI) | payer MEDICAID, SELFPAY ==
--- NOTE | 2024-10-13 07:00 | DI.MRI_ITS ---
Exam(s) MR UPPER JOINT LT WO EXAM: MR UPPER JOINT LT WO CLINICAL HISTORY: High suspicion for rotator cuff tear,LT,M75.102. TECHNIQUE: Multiplanar multisequence MRI was performed. COMPARISON: CR XR SHOULDER LT COMPLETE 2+V from 07/16/2024 FINDINGS: BONES: There is chronic deformity of the proximal humerus and the glenoid. The left humeral head is club shaped and flatten at its articular surface. There is also flattening of the articular surface of the glenoid. There is hyperintense signal seen on the T2 weighted images in the proximal humerus but no fracture is identified. There is an os acromiale. JOINTS: There are mild degenerative changes seen at the acromioclavicular joint. Chronic deformity o f the acromioclavicular joint is noted. There is a small amount of fluid seen within the joint space . TENDONS: Supraspinatus: There is supraspinatus tendinosis but no evidence of a tendon tear. Infraspinatus: Unremarkable. Subscapularis: Unremarkable. Teres Minor: Unremarkable. Biceps and Plain Dealing: There is a circuitous route of the biceps anchor, but the biceps tendon as visuali zed is intact. MUSCLES: Unremarkable. GLENOID LABRUM: There is abnormal appearance of the posterior inferior labrum. This may be secondary to the chronic deformity but degeneration or tear cannot be excluded. SOFT TISSUES: Unremarkable. LIGAMENTS: Unremarkable. OTHER: Subacromial and subdeltoid bursae are unremarkable. IMPRESSION: 1. Chronic deformity involving the glenohumeral joint with flattening of the articular surfaces and a club like appearance of the humeral head. 2. Supraspinatus tendinosis but no evidence of a rotator cuff tear. 3. Degenerative changes seen at the acromioclavicular joint. 4. Abnormal appearance of the posterior inferior labrum which appears small and heterogeneous. This m ay be secondary to the chronic deformity but degeneration and/or tear cannot be excluded. DATA REPOSITORY:
== END 2024-10-13 01:22 ==
LOC: DI 01:03
PROVIDERS: PCP Nurse Practitioner Adult Health; Visit Provider Nurse Practitioner Adult Health
DX: M19.012 Primary osteoarthritis, left shoulder (principal)
CPT/HCPCS: 73221

== ENCOUNTER 2025-01-07 10:45 | Outpatient (CLI) | payer MEDICAID, SELFPAY ==
--- NOTE | 2025-01-07 06:00 | DI.RAD_ITS ---
Exam(s) XR PAIN CLINIC SACRIOILIAC 2V EXAM: XR PAIN CLINIC SACRIOILIAC 2V CLINICAL HISTORY: Dx: Sacroiliac Joint Dysfunction TECHNIQUE: 2D and realtime digital imaging was performed. CONTRAST MATERIAL: Refer to procedure report. COMPARISON: No exams were available for comparison FINDINGS: Fluoroscopy was provided for Dr. Samson during the performance of a left sacroiliac joint injection. Please refer to the procedure report for complete details. Ka,r=4.1 mGy IMPRESSION: RADIATION DOSE DELIVERED: 0.0 0.0 0
[2025-01-07 10:53] VITALS: BP 124/84; PULSE 83; RESP 20; TEMP 36.6; O2SAT 97
[2025-01-07 11:29] VITALS: BP 125/95; PULSE 78; RESP 15; O2SAT 98
[2025-01-07 11:31] VITALS: PULSE 79; PULSE 80; RESP 21; O2SAT 99
[2025-01-07] MEDS: methylPREDNISolone ACETATE 80 MG/ML VIAL IJ (11:42)
[2025-01-07] MEDS: Nerve Block Tray 1 EACH MC (11:42)
[2025-01-07] MEDS: Omnipaque 240 MG/ML 50 ML BTL IJ (11:42)
--- NOTE | 2025-01-07 11:53 | PDOC.PAIN_ITS ---
Date of service: 01/07/25 Time of Service: 11:55 Pain Managment Procedure Note Procedure Note Procedure Note: PROCEDURE NOTE LEFT INTRA-ARTICULAR SACROILIAC JOINT INJECTION Date of Service: January 07, 2025 Patient: Sebastián Teresa Provider: Joni Samson DO, MPH COMMENTS: I previously evaluated the patient in the office and their symptoms in relation to the sacroiliac joint pain have remained the same. He last had this procedure May 2024 and had about 6 months of >50% pain relief. His pain has mostly returned. Pre-operative diagnosis: Sacroiliac joint dysfunction ICD-10 M53.3 Post-operative diagnosis: Same Pre-procedure pain: VAS= 7/10 Sebastián Teresa has been referred to [facility] for a Left intra-articular Sacroiliac joint injection. Sebastián was interviewed and the medical record reviewed. There were no medical, pharmacologic, radiographic or other structural contraindications to attempting a fluoroscopically-guided, contrast-enhanced, intra-articular Sacroiliac joint injection. The risks, benefits, and potential side effects of this procedure were reviewed with the patient. Questions and concerns were addressed. After it was clear that Sebastián was fully informed about the procedure, the printed consent form was signed by the patient and myself. Sebastián was placed in the prone position on the fluoroscopy table and an automated blood pressure cuff, 3 lead EKG, and pulse oximeter were applied. The skin entry point for approaching the Left sacroiliac joint was identified under the most advantageous fluoroscopic view and marked. Following thorough Chlorhexadine preparation of the skin and draping with sterile surgical drapes, 2 mls of 1% lidocaine was infiltrated into the skin at the entry point and the surrounding subcutaneous tissues. Next, a 3.5 22G spinal needle was placed under fluoroscopic guidance into the Left sacroiliac joint. Intra-articular placement was confirmed by a clear arthrogram resulting from the injection of 0.25ml of Omnipaque-240. Next, 1 ml of Depo- Medrol 80 mg/ml was injected intra- articularly with an initial reproduction of a significant component of the usual pain. This was followed with 1 ml of 1% Lidocaine. The needle was then removed without difficulty. (49 ml of Omnipaque-240 was wasted). Sebastián's vital signs were stable throughout the procedure and were as recorded in nursing records. Follow up plans and appointments were discussed with Sebastián. Post procedure instructions were given as documented in nursing records. Having met discharge criteria, Sebastián was [facility] from the [facility]. COMMENTS: Post-procedure pain: VAS= 0/10. If the patient receives at least 50% improvement in pain and/or function for at least 3 months, this procedure can be repeated if needed. I personally performed this entire procedure. JONI SAMSON DO, MPH ABPMR-subspecialty board certification in Pain Medicine [facility] Coding Conscious Sedation used for procedure: No CPT Codes: SI Joint Inj; incl Fluoro - 33872 ([id number] ~G) left Additional Codes: Date of Service (03454) Date of service: 01/07/25
== END 2025-01-07 10:46 | disposition home or self-care (01) ==
LOC: PC 10:46
PROVIDERS: PCP Nurse Practitioner Adult Health; Visit Provider Preventive Medicine Occupational Medicine
DX: M53.3 Sacrococcygeal disorders, not elsewhere classified (principal)
CPT/HCPCS: 27096; 72200; J1010; Q9967

== ENCOUNTER 2025-05-01 18:02 | Emergency (ER) | payer MEDICAID, SELFPAY ==
[2025-05-01] VITALS (12 sets, daily range): BP systolic 145–147; BP diastolic 95; PULSE 61–89; RESP 18–20; TEMP 37.2; O2SAT 97–99
[2025-05-01] MEDS: ACETAMINOPHEN 500 MG/50 ML BAG 200 MG IVPB (19:00)
[2025-05-01] MEDS: HYDROmorphone 2 MG/ML SYR 0.5 MG IVP (19:28)
[2025-05-01] MEDS: Dexamethasone 4 MG/ML VIAL IVP (19:28)
[2025-05-01 19:29] LABS: Abs Immature Grans 0.02 10^3/uL (0.0-0.06); HCT 41.5 % (40.0-50.0); HGB 13.9 g/dL (13.5-17.5); Immature Grans % 0.2 %; MCH 31.2 pg (27.0-33.0); MCHC 33.5 % (32.0-36.0); MCV 93 fL (80-95); MPV 8.3 fL (8.0-11.0); Platelet Count 404 10^3/uL (130-400); RBC 4.45 10^6/uL (4.36-5.78); RDW 12.7 % (11.8-14.1); RDW-SD 43.9 fL; WBC 9.14 10^3/uL (4.4-10.8)
[2025-05-01] MEDS: Ketorolac 15 MG/ML VIAL 7.5 MG IVP (19:29)
[2025-05-01] MEDS: Normal Saline 500 ML IV (19:29)
[2025-05-01 19:30] LABS: ESR 11 mm/hr (0-15)
[2025-05-01 19:50] LABS: ALT 14 U/L (16-63); AST 16 U/L (15-37); Albumin 3.5 g/dL (3.4-5.0); Alkaline Phosphatase 80 U/L (46-116); Anion Gap 10.2 mmol/L (3-11); BUN 6 mg/dL (7-18); Bilirubin, Total 0.6 mg/dL (0.2-1.0); CO2 25.8 mmol/L (21.0-32.0); Calcium 8.3 mg/dL (8.5-10.1); Chloride 103 mmol/L (98-107); Estimated GFR 126.60 (mL/min/1.73m2); Glucose 94 mg/dL (74-106); Potassium 4.0 mmol/L (3.5-5.1); Sodium 139 mmol/L (136-145); Total Protein 6.6 g/dL (6.4-8.2)
[2025-05-01 19:53] LABS: C-Reactive Protein < 0.50 mg/dL (<or=0.5)
--- NOTE | 2025-05-01 20:11 | ED.GENADUL_ITS ---
Discharge Plan Disposition Patient Disposition: Home Condition: Stable Discharge Details Clinical Impression: Cervical radiculopathy Primary Care Provider: Anayeli Gray ED Provider: Martha Moore Home Meds and New Rx's Prescriptions: New gabapentin [Neurontin] 300 mg capsule 300 mg PO BID Qty: 28 0RF dexamethasone 4 mg tablet 4 mg PO DAILY Qty: 4 0RF Oxycodone, 4 Tabs/Btl [Roxicodone, 4 Tabs/Btl] 5 mg PO DISPENSE 2 Days 0RF Continued acetaminophen 500 mg capsule 1,000 mg PO TID PRN (Reason: fever) Qty: 60 2RF Rx Instructions: For neck & hip pain (arthritis); ok to take with Celebrex. gabapentin 600 mg tablet 600 mg PO QHS Qty: 90 3RF triamcinolone acetonide 0.1 % ointment 1 applic topical DAILY Qty: 15 0RF Rx Instructions: use daily for 2 weeks to both elbows omeprazole 20 mg capsule,delayed release(DR/EC) 20 mg PO DAILY PRN (Reason: heartburn) Qty: 90 3RF Rx Instructions: heartburn Discontinued diazepam [Valium] 5 mg tablet 2.5 - 5 mg PO QHS PRN (Reason: muscle relaxer) Qty: 20 0RF Rx Instructions: Muscle relaxer Discharge Instructions Instructions: Radiculopathy (DC) Additional Instructions: Please follow-up with your PCP, you would likely need a referral to neurosurgery as I suspect your disc herniation in your cervical spine is causing your radicular symptoms Take the steroids starting tomorrow you received a dose tonight in the emergency department You may take the oxycodone sparingly, this can be addictive and can cause constipation, do not drive for 8 hours after taking this medicine Make sure you take Tylenol 650 every 6 hours for pain control Increase your Neurontin, take 300 mg of Neurontin every 8 hours during the day and take your 600 mg at night before bedtime Please return should develop strength or sensation changes, or with any new or worsening complaints Referrals: Anayeli Gray, [employer] [Primary Care Provider, Medicine] HPI General Date/Time Provider Initiated Documentation: 05/01/25 18:07 . 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 Denies fever, chills, chest pain, shortness of breath, or trauma. Last injection a year ago. Takes gabapentin 600 mg at night for restless leg syndrome. Related Data Home Medications ?Medication ?Instructions ?Recorded ?Confirmed acetaminophen 500 mg capsule 1,000 mg (2 x 500 mg) PO TID PRN 05/20/20 05/01/25 fever #60 caps omeprazole 20 mg capsule,delayed 20 mg PO DAILY PRN he artburn #90 09/04/23 05/01/25 release caps gabapentin 600 mg tablet 600 mg PO QHS #90 tabs 05/2705/01/25 triamcinolone acetonide 0.1 % 1 applic topical DAILY # 15 grams 05/27/24 05/01/25 topical ointment dexamethasone 4 mg tablet 4 mg PO DAILY #4 tabs gabapentin 300 mg capsule 300 mg PO BID #28 caps 05/01 (Neurontin) oxyCODONE, 4 tabs/btl [Roxicodone, 5 mg PO DISPENSE 2 days 05/01/25 4 tabs/btl] Previous Rx's ?Medication ?Instructions ?Recorded acetaminophen 500 mg capsule 1,000 mg (2 x 500 mg) PO TID PRN 05/20/20 fever #60 caps omeprazole 20 mg capsule,delayed 20 mg PO DAILY PRN he artburn #90 09/04/23 release caps gabapentin 600 mg tablet 600 mg PO QHS #90 tabs 05/27 triamcinolone acetonide 0.1 % 1 applic topical DAILY # 15 grams 05/27/24 topical ointment dexamethasone 4 mg tablet 4 mg PO DAILY #4 tabs gabapentin 300 mg capsule 300 mg PO BID #28 caps 05/01 (Neurontin) oxyCODONE, 4 tabs/btl [Roxicodone, 5 mg PO DISPENSE 2 days 05/01/25 4 tabs/btl] Allergies Allergy/AdvReac Type Severity Reaction Status Date / Time latex Allergy Mild Skin Rash Verified 05/01/25 18:10 clindamycin AdvReac Intermediate vomiting Verified 05/01/25 18:10 amitriptyline AdvReac Mild irritabilit Verified 05/01/25 18:10 y cyclobenzaprine AdvReac Mild Irritabilit Verified 05/01/25 18:10 y duloxetine AdvReac Agitation Verified 05/01/25 18:10 General Stated Complaint: GenMedical RADHA: 3 Exam Narrative Exam Narrative: General Appearance: Alert and oriented, Tremulous. Vital signs: Within normal limits. HEENT: Within normal limits. Respiratory: Within normal limits. Cardiovascular: Distal pulses intact. Back, Musculoskeletal: Tenderness over C7 region consistent with disk herniation on October 2024 MRI. Extremities: Preserved strength in upper and lower extremities. Skin: Warm and dry, no rash. Neurological: Neurovascularly intact, DTRs intact. Other observations: None. Course Vital Signs Vital signs: Vital Signs Temperature 37.2 C 05/01/25 18:04 Pulse 89 05/01/25 18:04 Respiratory Rate 20 05/01/25 18:04 Blood Pressure 147/95 H 05/01/25 18:04 Pulse Oximetry 97 05/01/25 18:04 Temperature 37.2 C 05/01/25 18:15 Temperature Source Tympanic 05/01/25 18:15 Pulse 89 05/01/25 18:15 Respiratory Rate 18 05/01/25 19:15 Respiratory Effort Normal 05/01/25 19:15 Respiratory Depth Normal 05/01/25 19:15 Respiratory Pattern Normal 05/01/25 19:15 Blood Pressure 147/95 H 05/01/25 18:15 Blood Pressure Position Sitting 05/01/25 18:15 Pulse Oximetry 97 05/01/25 18:15 Oxygen Delivery Method Room Air 05/01/25 18:15 Oxygen Flow Rate 0 05/01/25 18:15 Pain Level 8 05/01/25 19:29 Lab/Test Results Lab/Test Results: Laboratory Tests Range/Units 05/01/25 05/01/25 18:45 19:20 WBC Cancelled 9.14 RBC Cancelled 4.45 Hgb Cancelled 13.9 Hct Cancelled 41.5 MCV Cancelled 93 MCH Cancelled 31.2 MCHC Cancelled 33.5 RDW Cancelled 12.7 Plt Count Cancelled 404 H MPV Cancelled 8.3 Immature Gran % Cancelled 0.2 Neutrophils % Cancelled 58.4 Band Neutrophils % Cancelled Lymphocytes % Cancelled 34.5 Atypical Lymphs % Cancelled Monocytes % Cancelled 4.7 Eosinophils % Cancelled 1.5 Basophils % Cancelled 0.7 Metamyelocytes % Cancelled Myelocytes % Cancelled Promyelocytes % Cancelled Other Cells % Cancelled Nucleated RBC % Cancelled 0.0 Absolute Neutrophils Cancelled 5.34 Absolute Lymphocytes Cancelled 3.15 Absolute Monocytes Cancelled 0.43 Absolute Eosinophils Cancelled 0.14 Absolute Basophils Cancelled 0.06 RBC Morphology Cancelled Polychromasia Cancelled Hypochromasia Cancelled Poikilocytosis Cancelled Basophilic Stippling Cancelled Anisocytosis Cancelled Microcytosis Cancelled Macrocytosis Cancelled Spherocytes Cancelled Tear Drop Cells Cancelled Ovalocytes Cancelled Stomatocytes Cancelled [place] Bodies Cancelled [place] Cells/Echinocytes Cancelled Acanthocytes (Spur) Cancelled Schistocytes Cancelled ESR Cancelled 11 Sodium Cancelled 139 Potassium Cancelled 4.0 Chloride Cancelled 103 Carbon Dioxide Cancelled 25.8 Anion Gap Cancelled 10.2 BUN Cancelled 6 L Creatinine Cancelled 0.5 L Est GFR (CKD-EPI 2020) Cancelled 126.60 Glucose Cancelled 94 Calcium Cancelled 8.3 L Total Bilirubin Cancelled 0.6 AST Cancelled 16 ALT Cancelled 14 L Alkaline Phosphatase Cancelled 80 C-Reactive Protein Cancelled < 0.50 Total Protein Cancelled 6.6 Albumin Cancelled 3.5 Medical Decision Making MRI from October 2024 shows disk herniation at C7. 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 Denies fever, chills, chest pain, shortness of breath, trauma. Differential Diagnosis: - Cervical disc herniation: Worsening neck pain, radiation into arms, increased paresthesias, tenderness over C7 region, MRI confirms disc herniation. Pain management with Dilaudid, Toradol, Tylenol, Decadron. Likely discharge home with increased gabapentin dosing, close outpatient follow-up. ED Course: - Dilaudid, Toradol, Tylenol, Decadron administered. Patient feeling marked improvement in symptoms. CBC does CMP and CRP sed rate do not show acute abnormality - No clinical findings consistent with cauda equina syndrome Final Assessment: Pain managed with Dilaudid, Toradol, Tylenol, Decadron. Likely discharge home with increased gabapentin dosing, close outpatient follow-up. Clinical Impression: - Cervical disc herniation Disposition: - Discharge: Home, pain management, increased gabapentin dosing, close outpatient follow-up - Follow-Up: Close outpatient follow-up PFSH All Active Problems (Updated 05/01/25 @ 20:12 by KANWAL Nelson) Cervical radiculopathy (Acute) Arthritis of left glenohumeral joint (Acute) Closed fracture of left proximal humerus (Acute) Cervical radiculopathy (Acute) Sacroiliac joint dysfunction of left side (Acute) Dysfunction of right eustachian tube (Acute) Otalgia of right ear (Acute) Lumbosacral spondylosis without myelopathy (Acute) Hip pain (Acute) Facet arthropathy, lumbar (Acute) Degenerative joint disease of cervical and lumbar spine (Acute) Foraminal stenosis of cervical region (Acute) Kyphosis of cervical region (Acute) Degenerative cervical disc (Acute) Cervical radiculopathy (Acute) Chronic neck pain (Acute) Heartburn (Chronic) Omeprazole helps Lumbar disc herniation with radiculopathy (Acute) Chronic radicular lumbar pain (Chronic) [facility] 02/09/2021-->lumbosacral spondylosis without myelopathy Left hip pain (Acute) Right hand paresthesia (Acute) Chronic back pain (Acute) Nicotine use disorder (Acute) Pseudoachondroplasia (Chronic) Medical History History of spinal fracture History of femur fracture R; nicole in place Headache Surgical History History of bilateral hip replacements Family History Maternal Grandfather Diabetes Hypertension Maternal Grandmother Heart disease CHF Hypertension Mother Hypertension Maternal Grandfather Alcohol abuse Other Arthritis Social History Smoking/Tobacco Use Status: Current every day Tobacco Type: cigarettes Smoking risk assessment performed?: Yes Alcohol Intake: current Alcohol Intake frequency: holidays/special occasions only Drug use: Daily Substance use type: marijuana Household members: family Housing: house Do you need help understanding health information?: Rarely current occupation: Unemployed Do you think of yourself as: straight/heterosexual Current gender identity: male Do you feel safe at home: Yes Do you feel safe in your relationship?: Yes
== END 2025-05-01 20:46 | disposition home or self-care (01) ==
PROVIDERS: Emergency Provider Physician Assistant; PCP Nurse Practitioner Adult Health
DX: M50.123 Cervical disc disorder at C6-C7 level with radiculopathy (principal); R20.2 Paresthesia of skin; F17.210 Nicotine dependence, cigarettes, uncomplicated
CPT/HCPCS: 80053; 85652; 96365; 96366; 96375; 99284; 85025; 86140; J0131; J1100; J1171; J1885

== ENCOUNTER 2025-05-10 19:41 | Outpatient (REF) | payer MEDICAID, SELFPAY ==
[2025-05-12 09:34] LABS: Lyme Ab w Rflx to Lyme Confirm Negative (Negative)
[2025-05-14 14:09] LABS: B. miyamotoi PCR Negative (Negative); Babesia divergens/MO-1 Negative (Negative); Ehrlichia muris eauclairensis Negative (Negative)
== END 2025-05-10 19:42 | disposition home or self-care (01) ==
LOC: LBN 19:41
PROVIDERS: PCP Nurse Practitioner Adult Health; Visit Provider Nurse Practitioner Adult Health
DX: W57.XXXA Bitten or stung by nonvenomous insect and other nonvenomous arthropods, initial encounter (principal); T14.90XA Injury, unspecified, initial encounter
CPT/HCPCS: 87798; 86618

== ENCOUNTER 2025-06-03 02:56 | Outpatient (CLI) | payer MEDICAID, SELFPAY ==
--- NOTE | 2025-06-03 06:58 | DI.MRI_ITS ---
Exam(s) MR CERVICAL SPINE WO EXAM: MR CERVICAL SPINE WO CLINICAL HISTORY: severe pain,CERVICAL RADICULOPATHY,M54.12 TECHNIQUE: Multiplanar multisequence MRI of the cervical spine was performed without intravenous contrast. COMPARISON: CR XR CERVICAL SPINE COMP 4-5V from 05/09/2020 MR MR CERVICAL SPINE WO from 02/22/2021 MR MR CERVICAL SPINE WO from 12/11/[address] HEAD CERVICAL SPINE WO from 07/01/2024 FINDINGS: BONES: Vertebral body heights are maintained. Intervertebral disc spaces are normal. There is mild reversal of the normal cervical lordosis centered at C6- C7. Bone marrow signal intensity is within normal limits. CERVICAL CORD: Craniovertebral junction is unremarkable. There is a new small focus of hyperintense signal seen in the posterior and left aspect of the spinal cord (series 5001, image 8 and series 8001, image 4). SOFT TISSUES: Unremarkable. C2-3: No disc herniation or bulge is identified. No significant central spinal canal or neural foraminal stenosis. C3-4: No disc herniation or bulge is identified. No significant central spinal canal or neural foraminal stenosis C4-5: No disc herniation or bulge is identified. No significant central spinal canal or neural foraminal stenosis C5-6: There is prominence of the osteophyte disc complex. There is mild narrowing of the central spinal canal. Uncovertebral joint arthropathy is present causing mild bilateral neural foraminal stenosis. No significant central spinal canal or neural foraminal stenosis C6-7: There is prominence of the osteophyte disc complex. There are degenerative changes seen at the uncovertebral joints bilaterally, left greater than right. There is resultant mild narrowing of the central spinal canal. There is also bilateral neural foraminal stenosis which is moderate on the left and mild on the right. C7-T1: There is a small left paracentral disc protrusion. There is no significant central spinal canal stenosis. There is no significant neural foraminal stenosis present. IMPRESSION: 1. New small hyperintense focus of signal in the posterior left aspect of the spinal cord. Differential considerations include infectious or an inflammatory process, injury. Neoplastic process cannot be entirely excluded. Postcontrast MRI of the cervical spine is recommended for further characterization. 2. Multilevel degenerative changes in the cervical spine resulting in central spinal canal and neural foraminal stenosis as described above. Unexpected findings DATA REPOSITORY:
== END 2025-06-03 03:16 ==
LOC: DI 02:57
PROVIDERS: PCP Nurse Practitioner Adult Health; Visit Provider Family Medicine
DX: M50.11 Cervical disc disorder with radiculopathy, high cervical region
CPT/HCPCS: 72141

== ENCOUNTER 2025-06-23 02:08 | Outpatient (CLI) | payer MEDICAID, SELFPAY ==
--- NOTE | 2025-06-23 06:00 | DI.MRI_ITS ---
Exam(s) MR CERVICAL SPINE W EXAM: MR CERVICAL SPINE W CLINICAL HISTORY: CHRONIC NECK PAIN,CERVICAL KYPHOSIS,RADICULOPATHY,FORAMINAL STENOSIS, TECHNIQUE: Multiplanar multisequence MRI of the cervical spine was performed. CONTRAST MATERIAL: IV Contrast: 11 ML of Dotarem contrast administered. COMPARISON: MR MR CERVICAL SPINE WO from 06/03/2025 FINDINGS: BONES: Vertebral body heights are maintained. Intervertebral disc spaces are normal. There is again seen mild reversal of the normal cervical lordosis. Bone marrow signal intensity is within normal limits. CERVICAL CORD: Craniovertebral junction is unremarkable. There is a stable focus of hyperintensity on the T2 weighted images in the spinal cord posterior to the C6 vertebra. There is no enhancement of this area following contrast administration. The remainder of the spinal cord shows normal signal. SOFT TISSUES: Unremarkable. ENHANCEMENT: No suspicious enhancement identified. Stable degenerative changes are seen throughout the cervical spine when compared to the examination from 06/03/2025. There has been no significant change in the degree of central spinal canal and neural foraminal stenosis in the cervical spine. IMPRESSION: 1. Stable nonenhancing focus of hyperintensity in the cervical spinal cord posterior to C6. This likely represents an area of myelopathy. 2. Stable degenerative changes in the cervical spine with no significant change in the central spinal canal and neural foraminal stenosis. 3. No evidence of a mass or enhancing lesion. 4. The preliminary [facility] report was reviewed. DATA REPOSITORY:
[2025-06-23] MEDS: Gadoterate meglumine 20 ML VIAL IVP (12:15)
[2025-06-23] MEDS: Normal Saline Flush 10 ML SYR IVP (12:16)
--- NOTE | 2025-06-23 20:19 | DI.VRAD_ITS ---
PROCEDURE INFORMATION: Exam: MR Cervical Spine With Contrast Exam date and time: 06/23/2025 12:05 PM Age: 49 years old Clinical indication: Chronic neck pain, cervical kyphosis, radiculopathy, foraminal stenosis, degenerative cervical disc TECHNIQUE: Imaging protocol: Magnetic resonance imaging of the cervical spine with contrast. Contrast material: DOTAREM; Contrast volume: 11 ml; Contrast route: INTRAVENOUS (IV); COMPARISON: MR CERVICAL SPINE WO 06/03/2025 6:57 AM FINDINGS: Bones/joints: No fracture. There is reversal of the cervical lordosis, possibly related to neck spasm or degenerative changes. Spinal cord: There is a focus of T2 hyperintensity at the C6 level, similar to prior examination and likely represents a focus of myelopathy. C2-C3: There is uncovertebral arthropathy and facet arthropathy noted causing mild right neural foraminal narrowing. No significant spinal canal stenosis. C3-C4: There is uncovertebral arthropathy and facet arthropathy noted causing mild bilateral neural foraminal narrowing. No significant spinal canal stenosis. C4-C5: There is uncovertebral arthropathy and facet arthropathy noted causing moderate left and mild right neural foraminal narrowing. No significant spinal canal stenosis. C5-C6: There is uncovertebral arthropathy and facet arthropathy noted causing moderate to severe bilateral neural foraminal narrowing. There is mild spinal canal stenosis secondary to a prominent disc osteophyte complex. C6-C7: There is uncovertebral arthropathy and facet arthropathy noted causing moderate to severe bilateral neural foraminal narrowing. There is moderate spinal canal stenosis secondary to a prominent disc osteophyte complex. C7-T1: No significant disc bulge or herniation. No severe spinal canal stenosis. No significant neural foraminal narrowing. Soft tissues: Unremarkable. IMPRESSION: 1. Multilevel degenerative changes as described, most prominent at C5-C6 and C6-C7 with spinal canal stenosis and neural foraminal narrowing. These findings are grossly stable in appearance when compared to the prior examination. 2. Stable appearance of small T2 hyperintensity at the C6 level, likely a focus of myelopathy. Dictated and Authenticated by: Kassie Burkett MD. Orderin Yvon Em MD
== END 2025-06-23 02:28 ==
LOC: DI 02:08
PROVIDERS: PCP Nurse Practitioner Adult Health; Visit Provider Family Medicine
DX: M54.2 Cervicalgia (principal); G89.29 Other chronic pain; M40.202 Unspecified kyphosis, cervical region; M54.12 Radiculopathy, cervical region; M50.30 Other cervical disc degeneration, unspecified cervical region; M48.02 Spinal stenosis, cervical region
CPT/HCPCS: 72142